=== PATIENT | male | born 1985 | race Two or more races ===

== ENCOUNTER 2017-11-23 09:16 | Emergency (ER) | payer MEDICAID ==
[~2017-11-23] VITALS: Ht 182.9 cm; Wt 78.1 kg
[2017-11-23 09:36] VITALS: BP 125/80
[2017-11-23] MEDS ORDERED: CIPR10DR RIGHT EAR (10:24)
== END 2017-11-23 10:38 | disposition home or self-care (01) ==
LOC: ER 09:17
DX: H60.91 Unspecified otitis externa, right ear (principal); F12.10 Cannabis abuse, uncomplicated; Z59.0 Homelessness
CPT/HCPCS: 70210; 99284; A6255; A6257; A6266; A6449